=== PATIENT | female | born 1965 | race Caucasian/White ===

== ENCOUNTER → 2018-03-04 | Outpatient (CLI) | payer OTHER ==
[~2018-03-04] MED LIST: ASCO500T16 PO; CYAN10004 PO; GADAVIST IV PRN; MULT-580 PO
--- NOTE | 2018-03-04 08:18 | DIAGNOSTIC IMAGING REPORT ---
MRI OF THE BRAIN COMBO CLINICAL HISTORY: Headache. Seizure. Reported history of previous abnormal MRI. COMPARISON STUDY: No priors. TECHNIQUE: MRI of the brain was performed utilizing various T1 and T2-weighted sequences in the axial, sagittal, and coronal planes. Contrast-enhanced sequences were acquired following the administration of 6 cc of Gadavist. FINDINGS: Brain parenchyma: There are numerous foci of T2 signal abnormality identified within the subcortical and periventricular white matter. Several of these are oriented perpendicular to the ventricles, and the appearance is concerning for demyelinating disorder. There is no associated abnormal enhancement on the postcontrast sequences. There is no hemorrhage or mass effect. There is no restricted diffusion to suggest acute ischemia. No enhancing mass lesion is identified on the postcontrast images. De Leon-white matter differentiation is preserved. No extra-axial fluid collection is seen. The cerebellar tonsils are normal in configuration. The hippocampi are normal and symmetric. Ventricles, sulci, and cisterns: Normal in configuration. Pituitary and sella: Unremarkable. Intracranial vasculature: Normal flow voids are maintained at the skull base. Orbits: The bony orbits are grossly intact. Orbital contents are normal in appearance. Sinuses and mastoids: Clear. Calvarium: Unremarkable. Cervical cord: Partially visualized cervical spinal cord is normal in morphology and signal intensity. IMPRESSION: 1. There is no hemorrhage, enhancing mass, or evidence of acute ischemia. 2. There are numerous foci of T2 signal abnormality identified throughout the subcortical and periventricular white matter. Several of these are oriented perpendicular to the ventricles, and the appearance is concerning for a demyelinating disorder such as multiple sclerosis. Differential considerations include age advanced microangiopathic change or less likely Lyme disease. Clinical correlation will be essential. 3. There is no associated abnormal enhancement on the postcontrast sequences. Electronically signed by: Ifeanyi Silva M.D. 03/04/2018 8:17 AM Dictated Date/Time: 03/04/2018 8:12 AM
== END | disposition home or self-care (01) ==
LOC: C.MRIBC 07:18
PROVIDERS: ATTEND Psychiatry & Neurology Neurology
DX: R94.02 Abnormal brain scan (principal)